=== PATIENT | male | born 1965 | race Hispanic/Latino ===

== ENCOUNTER 2020-11-05 22:02 | Emergency (ER) | payer OTHER ==
[2020-11-05] MEDS ORDERED: Ondansetron PF 4 MG/2 ML Vial ONE (22:37)
[2020-11-05] MEDS ORDERED: Morphine 4 MG/ML VIAL ONE (22:37)
[2020-11-05 22:53] LABS: #Basophils 0.1 10x3/uL (0.0-0.2); #Eosinphils 0.4 10x3/uL (0.0-0.5); #Monocytes 1.7 10x3/uL (0.0-1.1); #Neutrophils 14.2 10x3/uL (1.5-8.4); %Basophils 0.5 % (0.0-2.0); %Eosinophils 2.2 % (0.0-6.0); %Lymphocytes 10.6 % (18.0-47.0); %Monocytes 9.2 % (0.0-10.0); %Neutrophils 76.1 % (40.0-75.0); ALT (SGPT) 15 U/L (8-55); AST (SGOT) 12 U/L (5-34); Albumin 3.3 g/dL (3.5-5.0); Alkaline Phosphatase 121 U/L (40-110); Anion Gap 16 mmol/L (10-20); BUN (Urea Nitrogen) 14 mg/dL (8.4-25.7); Bilirubin, Total 0.3 mg/dL (0.2-1.2); CK (CPK) 365 U/L (30-200); Calc. Creatinine Clearance 0 mL/min (70-130); Calcium 8.5 mg/dL (7.8-10.44); Carbon Dioxide 21 mmol/L (22-29); Chloride 95 mmol/L (98-107); Globulin 3.4 g/dL (2.4-3.5); Glucose 407 mg/dL (70-105); Hemoglobin 11.6 g/dL (13.5-17.5); Mean Corpuscular HGB CONC 33.8 g/dL (32.0-36.0); Mean Corpuscular Hemoglobin 27.9 pg (27.0-33.0); Mean Corpuscular Volume 82.5 fl (81.2-95.1); Mean Platelet Volume 9.8 fl (7.4-10.4); Platelet Count 371 10x3/uL (150-450); Potassium 4.9 mmol/L (3.5-5.1); Protein, Total 6.7 g/dL (6.0-8.3); RBC Distribution Width 12.8 % (11.5-14.5); Red Blood Cell (RBC) Count 4.16 10x6/uL (4.32-5.72); Sodium 127 mmol/L (136-145); White Blood Cell (WBC) Count 18.7 10x3/uL (3.5-10.5)
[2020-11-05] MEDS ORDERED: Vancomycin HCl 500 MG VIAL ONE (23:07)
[2020-11-05] MEDS ORDERED: Piperacillin/Tazobactam 4.5 GM VIAL ONE (23:28)
[2020-11-06] MEDS ORDERED: Morphine 4 MG/ML VIAL ONE (01:46)
[2020-11-06] MEDS ORDERED: Insulin Regular 300 UNITS/3 ML VIAL ONE (02:32)
[2020-11-06 02:41] LABS: Lactic Acid 1.4 mmol/L (0.5-2.2)
[2020-11-06] MEDS ORDERED: Piperacillin/Tazobactam 4.5 GM VIAL ONE (06:22)
== END 2020-11-06 07:49 | disposition short-term general hospital (02) ==
LOC: CSHERS 22:02
DX: L03.221 Cellulitis of neck (principal)
CPT/HCPCS: 36415; 36416; 70491; 80053; 82550; 83605; 85025; 86140; 87040; 96365; 96366; 96367; 96375; 96376; J1815; J2270; J2405; J2543; J3370